=== PATIENT | female | born 1990 | race Caucasian/White ===

== ENCOUNTER 2017-05-05 19:28 | Emergency (ER) | payer SELFPAY ==
[~2017-05-05] VITALS: Ht 167.6 cm; Wt 62.6 kg
[2017-05-05] MEDS ORDERED: KETOROLAC TROMETHAMINE 30 MG INJ IVP ONE (20:00)
[2017-05-05] MEDS ORDERED: IBUPROFEN 800 MG TABLET ONE (20:09)
[2017-05-05] MEDS ORDERED: IBUPROFEN 800 MG TABLET PO ONE (20:15)
[2017-05-05 20:16] LABS: BASOPHILS % (AUTO) 0.5 % (0.0-2.0); EOSINOPHILS # (AUTO) 0.1 K/uL (0.0-0.7); HEMATOCRIT 36.4 % (31.2-41.9); HEMOGLOBIN 12.6 g/dL (10.9-14.3); LYMPHOCYTES # (AUTO) 2.3 K/uL (20.0-40.0); LYMPHOCYTES % (AUTO) 28.7 % (20.5-51.5); MEAN CORPUSCULAR HGB CONC 35 g/dL (32.3-35.6); MEAN CORPUSCULAR VOLUME 89.4 fL (75.5-95.3); MONOCYTES # (AUTO) 0.4 K/uL (2.0-10.0); MONOCYTES % (AUTO) 4.9 % (0.0-11.0); NEUTROPHILS # (AUTO) 5.3 K/uL (1.8-8.9); NEUTROPHILS % (AUTO) 64.9 % (38.5-71.5); PLATELET COUNT (AUTO) 242 K/uL (179-408); RED BLOOD CELL COUNT(AUTO) 4.07 MIL/uL (3.63-4.92); WHITE BLOOD COUNT (AUTO) 8.1 K/uL (3.8-11.8)
[2017-05-05 20:27] LABS: CREATININE 0.8 mg/dL (0.6-1.3); POTASSIUM 3.7 mmol/L (3.5-5.1)
[2017-05-05 20:40] LABS: BILIRUBIN,DIRECT 0.1 mg/dL (0.0-0.2); BILIRUBIN,TOTAL 0.4 mg/dL (0.2-1.0); TOTAL PROTEIN, SERUM 7.6 g/dL (6.4-8.2)
[2017-05-05] MEDS ORDERED: MAG HYDROX/AL HYDROX/SIMETH 30 ML LIQUID UDC ONE (20:52)
[2017-05-05] MEDS ORDERED: LIDOCAINE VISCUS 2% 15 ML UDC ONE (20:53)
[2017-05-05] MEDS ORDERED: PANTOPRAZOLE SODIUM 40 MG TABLET.DR PO ONE ×2 (20:53→21:00)
[2017-05-05] MEDS ORDERED: LIDOCAINE VISCUS 2% 15 ML UDC MM ONE (21:00)
[2017-05-05] MEDS ORDERED: MAG HYDROX/AL HYDROX/SIMETH 30 ML LIQUID UDC PO ONE (21:00)
--- NOTE | 2017-05-05 22:10 | NUR ---
Patient requested something to eat. ERMD notified, ok to eat. Provided.
[2017-05-06] MEDS ORDERED: LORAZEPAM 0.5 MG TABLET PO ONE
[2017-05-06] MEDS ORDERED: LORAZEPAM 1 MG TABLET ONE (00:03)
--- NOTE | 2017-05-06 00:07 | NUR ---
Patient feels like she is safe but does not want to return home at this time. Patient requests to stay in ER until she feels more relaxed. ABE notified, OK.
[2017-05-06 01:36] VITALS: BP 125/72
--- NOTE | 2017-05-06 01:36 | NUR ---
Patient discharged to home in stable conditon. Written and verbal after care instructions given. Patient verbalizes understanding of instructions.
== END 2017-05-06 01:38 | disposition home or self-care (01) ==
LOC: ER 19:29
DX: S23.8XXA Sprain of other specified parts of thorax, initial encounter (principal); F41.9 Anxiety disorder, unspecified; J40 Bronchitis, not specified as acute or chronic; J45.909 Unspecified asthma, uncomplicated; Z90.49 Acquired absence of other specified parts of digestive tract; Z91.041 Radiographic dye allergy status; X58.XXXA Exposure to other specified factors, initial encounter; Y93.89 Activity, other specified; Y92.89 Other specified places as the place of occurrence of the external cause; Y99.8 Other external cause status
CPT/HCPCS: 36415; 71045; 80048; 80076; 83880; 84484 ×2; 84703; 85025; 85379; 85730; 93005 ×2; 99285; A4663; 70030-TC